=== PATIENT | male | born 2000 | race Caucasian/White ===

== ENCOUNTER 2020-12-06 16:21 | Emergency (ER) | payer MEDICAID ==
[~2020-12-06] VITALS: Ht 177.8 cm; Wt 104.5 kg
[2020-12-06 20:22] VITALS: BP 122/74
== END 2020-12-06 21:18 | disposition home or self-care (01) ==
LOC: EMS 16:21
DX: S62.320A Displaced fracture of shaft of second metacarpal bone, right hand, initial encounter for closed fracture (principal); W22.01XA Walked into wall, initial encounter; Y93.89 Activity, other specified; Y92.89 Other specified places as the place of occurrence of the external cause; Y99.8 Other external cause status
CPT/HCPCS: 99283